=== PATIENT | male | born 1995 | race Caucasian/White ===

== ENCOUNTER 2025-01-14 11:19 | Inpatient (IN) | payer OTHER ==
[~2025-01-14] VITALS: Ht 162.6 cm; Wt 58.5 kg
[2025-01-14] MEDS ORDERED: ACETAMINOPHEN 325 MG TABLET PO PRN (14:00)
[2025-01-14] MEDS ORDERED: ONDANSETRON HCL 4 MG/2 ML VIAL IVP PRN (14:00)
[2025-01-14] MEDS ORDERED: OxyCODONE HCL/ACETAMINOPHEN 5-325 MG TABLET PO PRN (14:00)
[2025-01-14] MEDS ORDERED: MAGNESIUM HYDROXIDE SUSPENSION 30 ML UDCUP PO PRN (14:00)
[2025-01-14 14:05] LABS: PLATELET COUNT (AUTO) 263 K/uL (150-450); RED BLOOD CELL COUNT(AUTO) 4.89 MIL/uL (4.50-5.90); RED CELL DISTRIBUTION WIDTH 13.7 % (11.5-14.5); WHITE BLOOD COUNT (AUTO) 6.5 K/uL (4.5-11.0)
[2025-01-14 14:10] LABS: APPEARANCE,URINE CLEAR (CLEAR); GLUCOSE, URINE (UA) NEGATIVE (NEGATIVE); LEUKOCYTE ESTERASE ,URINE NEGATIVE (NEGATIVE); NITRATE,URINE NEGATIVE (NEGATIVE); OCCULT BLOOD,URINE NEGATIVE (NEGATIVE); SPECIFIC GRAVITIY, URINE 1.032 (1.003-1.030)
[2025-01-14 14:11] LABS: CALCIUM, TOTAL 8.5 mg/dL (8.8-10.5); CREATININE 0.71 mg/dL (0.60-1.30); GLOMERULAR FILTR. RATE CALC > 60 mL/min (>60); GLUCOSE,RANDOM 109 mg/dL (70-110); SODIUM SERUM 140 mmol/L (136-145); UREA NITROGEN, BLOOD 19 mg/dL (7-18)
[2025-01-14] MEDS: ONDANSETRON HCL 4 MG/2 ML VIAL IVP ONE (14:13)
[2025-01-14] MEDS: SODIUM CHLORIDE 0.9% 1,000 ML IV ONE ×2 (14:14→21:18)
[2025-01-14 14:24] LABS: ALCOHOL, URINE DRUG SCREEN NEGATIVE (NEGATIVE); AMPHET/METH SCREEN,URINE NEGATIVE (NEGATIVE); BARBITURATE SCREEN, URINE NEGATIVE (NEGATIVE); CANNABINOID SCREEN,URINE NEGATIVE (NEGATIVE); COCAINE SCREEN,URINE NEGATIVE (NEGATIVE); METHADONE SCREEN, URINE NEGATIVE (NEGATIVE)
[2025-01-14 14:26] LABS: PH,URINE DRUG SCREEN 6.0 (5.0-8.0)
[2025-01-14] MEDS: POTASSIUM CHLORIDE 20 MEQ ER TABLET PO ONE (15:04)
[2025-01-14 16:57] VITALS: BP 94/62; PULSE 61; RESP 18; TEMP 98.1; O2SAT 95
[2025-01-14 20:20] VITALS: BP 111/77; PULSE 61; RESP 18; TEMP 97.7; O2SAT 96
[2025-01-14] MEDS: DOCUSATE SODIUM 100 MG CAPSULE PO SCH (20:39)
[2025-01-15 03:05] VITALS: BP 111/68; PULSE 59; RESP 18; TEMP 98.2; O2SAT 96
[2025-01-15] MEDS ORDERED: RINGERS SOLUTION,LACTATED 1,000 ML IV ONE (05:58)
[2025-01-15] MEDS ORDERED: CeFAZolin 2 GM/DEXTROSE 50 ML IV ONE (06:11)
[2025-01-15] MEDS: RINGERS SOLUTION,LACTATED 1,000 ML IV ONE (06:27)
[2025-01-15] MEDS: ETHYL ALCOHOL 62% ANTISEPTIC NASAL SANITIZER 0.6 ML AMPUL NASAL ONE (06:27)
[2025-01-15] MEDS: CeFAZolin 2 GM/DEXTROSE 50 ML IV ONE (06:28)
[2025-01-15] MEDS: CHLORHEXIDINE GLUCONATE 2% TOWELETTE [2'S/6'S] TP ONE (06:28)
[2025-01-15] MEDS ORDERED: VANCOMYCIN HCL 1 GM VIAL ONE (07:20)
[2025-01-15] MEDS: BUPIVACAINE HCL 0.5% 50 ML VIAL ONE (07:48)
[2025-01-15] MEDS: LIDOCAINE 2%/EPI 1:200,000/PF 20 ML VIAL ONE (07:48)
[2025-01-15] MEDS ORDERED: ONDANSETRON HCL 4 MG/2 ML VIAL IVP PRN (09:00)
[2025-01-15] MEDS: FAMOTIDINE 20 MG TABLET PO SCH (09:00)
[2025-01-15] MEDS ORDERED: ACETAMINOPHEN 500 MG TABLET PO PRN (09:00)
[2025-01-15] MEDS ORDERED: LIDOCAINE/PF 2% 5 ML VIAL ONE (12:00)
[2025-01-15] MEDS ORDERED: ONDANSETRON HCL 4 MG/2 ML VIAL ONE (12:00)
[2025-01-15] MEDS ORDERED: DEXAMETHASONE SOD PHOS 4 MG/ML VIAL ONE (12:00)
[2025-01-15] MEDS ORDERED: FentaNYL CITRATE PF 100 MCG/2 ML VIAL ONE (12:00)
[2025-01-15] MEDS ORDERED: KETOROLAC TROMETHAMINE 60 MG/2 ML VIAL IM ONE (12:00)
[2025-01-15] MEDS ORDERED: PROPOFOL 1% 20 ML VIAL IVP ONE (12:00)
[2025-01-15] MEDS ORDERED: MIDAZOLAM HCL 2 MG/2 ML VIAL ONE (12:00)
[2025-01-15] MEDS ORDERED: SUGAMMADEX SODIUM 200 MG/2 ML VIAL IVP ONE (12:00)
[2025-01-15] MEDS ORDERED: ROCURONIUM BROMIDE 10 MG/ML 5 ML VIAL ONE (12:00)
[2025-01-15] MEDS ORDERED: KETAMINE HCL 50 MG/ML 10 ML VIAL ONE (12:00)
[2025-01-15] MEDS: IBUPROFEN 800 MG TABLET PO PRN (20:28)
[2025-01-15 21:52] VITALS: BP 109/66; PULSE 88; RESP 18; TEMP 98.2; O2SAT 95
[2025-01-15] MEDS: HYDROCODONE/ACETAMINOPHEN 5-325 MG TABLET PO PRN (22:19)
[2025-01-16 06:56] LABS: PLATELET COUNT (AUTO) 253 K/uL (150-450); RED BLOOD CELL COUNT(AUTO) 4.47 MIL/uL (4.50-5.90); RED CELL DISTRIBUTION WIDTH 14.0 % (11.5-14.5); WHITE BLOOD COUNT (AUTO) 9.0 K/uL (4.5-11.0)
[2025-01-16 07:01] LABS: CALCIUM, TOTAL 9.1 mg/dL (8.8-10.5); CREATININE 0.90 mg/dL (0.60-1.30); GLOMERULAR FILTR. RATE CALC > 60 mL/min (>60); GLUCOSE,RANDOM 102 mg/dL (70-110); SODIUM SERUM 139 mmol/L (136-145); UREA NITROGEN, BLOOD 14 mg/dL (7-18)
[2025-01-16 08:23] VITALS: BP 116/72; PULSE 78; RESP 18; TEMP 98.2; O2SAT 96
[2025-01-16] MEDS: POTASSIUM CHLORIDE 10 MEQ ER TABLET PO ONE (11:13)
== END 2025-01-16 14:22 | DRG 352 ==
LOC: EMS 11:22 → EDH 13:51 → 6S 16:55
PROVIDERS: ADMIT Internal Medicine; ATTEND Internal Medicine
PROC: 0YU54JZ Supplement Right Inguinal Region with Synthetic Substitute, Percutaneous Endoscopic Approach (ICD-10-PCS; principal; 2025-01-15 07:30)
DX: K40.30 Unilateral inguinal hernia, with obstruction, without gangrene, not specified as recurrent (principal)
CPT/HCPCS: 80048; 80307; 81003; 84132; 85025; 87081; 96361; 96374; 99285; G0238; J0690; J1100; J1171; J1885; J2250; J2405; J2704; J3010; J3373; J3490; J7030; J7120; 36415-L1; 36415-TC